=== PATIENT | male | born 1990 | race Caucasian/White ===

== ENCOUNTER 2017-02-10 13:55 | Emergency (ER) | payer BC ==
[~2017-02-10] VITALS: Ht 182.9 cm; Wt 79.5 kg
[2017-02-10 13:58] VITALS: BP 144/91
[2017-02-10] MEDS ORDERED: FLEXERIL5 MG PO (16:04)
[2017-02-10] MEDS ORDERED: MOTRIN600 MG PO (16:04)
[2017-02-10] MEDS ORDERED: PREDNISONE50 MG PO (16:04)
== END 2017-02-10 16:22 | disposition home or self-care (01) ==
LOC: EME 13:55
DX: M54.5 Low back pain (principal)
CPT/HCPCS: 99281; 99283